=== PATIENT | male | born 1960 | race Hispanic/Latino ===

== ENCOUNTER → 2017-12-16 | Outpatient (CLI) | payer OTHER ==
[~2017-12-16] MED LIST: CAPS60CR3 TP; CARB1DRO6 OU; CEPH500B PO; CHLO118L5 TP; CHOL100046 PO; CLOT15CR62 TP; DICL100G31 TP; DRON2.5C12 PO; FLUT15.88 NS; GABA-531 PO; LACT1CAP88 PO; MULT-950 PO; NAPR375T6 PO; OXYC-586 PO; OXYC5SOL17 PO; PSYL0.4C PO; PYRI50TA15 PO; SAW PALMETTO PO; SILD100T PO; UBID100C10 PO
== END | disposition home or self-care (01) ==
LOC: RAH 08:53
PROVIDERS: ATTEND Family Medicine
DX: S83.241A Other tear of medial meniscus, current injury, right knee, initial encounter (principal); X58.XXXA Exposure to other specified factors, initial encounter; Y93.89 Activity, other specified; Y92.89 Other specified places as the place of occurrence of the external cause; Y99.8 Other external cause status
CPT/HCPCS: 73721

== ENCOUNTER 2017-12-20 06:24 | Day surgery (SDC) | payer OTHER ==
[2017-12-19 15:32] VITALS: BP 116/75
[2017-12-19 15:38] LABS: BASOPHILS % (AUTO) 0.6 % (0.0-5.0); EOSINOPHILS % (AUTO) 1.9 % (0.0-8.0); HEMATOCRIT 46.5 % (42-54); LYMPHOCYTES % (AUTO) 41.1 % (21.0-51.0); MEAN CORPUSCULAR HEMOGLOBIN 34.6 pg (27.0-33.0); MEAN CORPUSCULAR HGB CONC 35.5 g/dL (32.0-36.0); MEAN CORPUSCULAR VOLUME 97.5 fL (79-99); NEUTROPHILS % (AUTO) 49.4 % (40.0-77.0); NUCLEATED RED BLOOD CELLS 0.1 % (0.0-0.19); PLATELET COUNT (AUTO) 150 K/uL (130-400); RED BLOOD CELL COUNT(AUTO) 4.77 MIL/uL (4.50-6.20); RED CELL DISTRIBUTION WIDTH 13.2 % (11.0-15.5)
[2017-12-19 15:49] LABS: CREATININE 1.1 mg/dL (0.5-1.5); POTASSIUM 4.5 mmol/L (3.5-5.1)
[~2017-12-20] VITALS: Ht 175.3 cm; Wt 100.6 kg
[2017-12-20] VITALS (13 sets, daily range): BP systolic 97–136; BP diastolic 60–73
[~2017-12-20 06:24] MED LIST changes: -CAPS60CR3 TP; +CEFAZOLIN 3GM /D5W 100ML 100 ML IV SCH; -CEPH500B PO; -CHLO118L5 TP; -CLOT15CR62 TP; -DICL100G31 TP; -FLUT15.88 NS; -GABA-531 PO; -LACT1CAP88 PO; -NAPR375T6 PO; -OXYC5SOL17 PO; -PSYL0.4C PO; -SAW PALMETTO PO; -UBID100C10 PO
[2017-12-20] MEDS ORDERED: ONDANSETRON HCL 4 MG/2 ML VIAL ONE ×2 (06:36→09:47)
[2017-12-20] MEDS ORDERED: PROPOFOL 10 MG/ML 20ML VIAL IV ONE ×2 (06:36→08:22)
[2017-12-20] MEDS ORDERED: GLYCOPYRROLATE 0.2 MG/ML 5 ML VIAL ONE (06:36)
[2017-12-20] MEDS ORDERED: DEXAMETHASONE SOD PHOSPHATE 10MG/ML 1ML VIAL ONE ×2 (06:36→08:49)
[2017-12-20] MEDS ORDERED: MIDAZOLAM HCL 1 MG/ML 2ML VIAL ONE (06:36)
[2017-12-20] MEDS ORDERED: LIDOCAINE PF 2% 5ML ABBOJECT ONE (06:36)
[2017-12-20] MEDS ORDERED: NEOSTIGMINE 5MG/5ML SYR IV ONE ×2 (06:36→08:49)
[2017-12-20] MEDS ORDERED: FENTANYL CITRATE PF 50 MCG/1 ML 2ML VIAL ONE ×2 (06:37→08:35)
[2017-12-20] MEDS ORDERED: LACTATED RINGERS 1000ML 1,000 ML IV ONE (07:26)
[2017-12-20] MEDS ORDERED: CEFAZOLIN SODIUM 1 GM VIAL ONE (07:26)
[2017-12-20] MEDS: CEFAZOLIN SODIUM 1 GM VIAL ONE ×2 (08:00→08:50)
[2017-12-20] MEDS ORDERED: ROCURONIUM BROMIDE 10MG/1ML 5ML VL ONE (08:49)
[2017-12-20] MEDS ORDERED: ONDANSETRON HCL MDV 20ML 2 MG/ML VIAL ONE (08:49)
[2017-12-20] MEDS ORDERED: SUCCINYLCHOLINE CHLORIDE 20 MG/ML 10 ML VIAL ONE (08:49)
[2017-12-20] MEDS ORDERED: METOCLOPRAMIDE 10 MG/2 ML VIAL ONE ×2 (08:50→09:47)
[2017-12-20] MEDS ORDERED: LIDOCAINE HCL 4% LTA SOL 4 ML VIAL ONE (08:50)
[2017-12-20] MEDS ORDERED: CITRIC ACID/SODIUM CITRATE 30 ML UDCUP ONE (08:58)
[2017-12-20] MEDS ORDERED: CEPH500B PO (09:12)
[2017-12-20] MEDS ORDERED: NAPR375T6 PO (09:12)
[2017-12-20] MEDS ORDERED: MEPERIDINE-PF 25 MG/ML SYG ONE ×2 (09:27→09:33)
== END 2017-12-20 11:03 | disposition home or self-care (01) ==
LOC: DAH 06:24
PROVIDERS: ATTEND Orthopaedic Surgery
DX: M23.221 Derangement of posterior horn of medial meniscus due to old tear or injury, right knee (principal); M48.02 Spinal stenosis, cervical region; M25.50 Pain in unspecified joint; Z98.890 Other specified postprocedural states; N40.0 Benign prostatic hyperplasia without lower urinary tract symptoms; Z90.49 Acquired absence of other specified parts of digestive tract; Z68.32 Body mass index [BMI] 32.0-32.9, adult; F17.210 Nicotine dependence, cigarettes, uncomplicated; Z88.8 Allergy status to other drugs, medicaments and biological substances; G89.29 Other chronic pain
CPT/HCPCS: 29881; 36415; 80048; 85025; A4218 ×2; A4606; A4649 ×2; A4930; A6223; J0330; J0690 ×2; J1100 ×2; J2001; J2175 ×2; J2250; J2405 ×2; J2704 ×2; J2710 ×2; J2765 ×2; J3010 ×2; J3490 ×2; J7120

== ENCOUNTER → 2018-05-02 | Outpatient (CLI) | payer OTHER ==
[~2018-05-02] MED LIST changes: -CEFAZOLIN 3GM /D5W 100ML 100 ML IV SCH; +CEPH500B PO; +NAPR375T6 PO
== END | disposition home or self-care (01) ==
LOC: SHCH 11:09
PROVIDERS: ATTEND Internal Medicine Cardiovascular Disease
DX: R94.31 Abnormal electrocardiogram [ECG] [EKG] (principal)
CPT/HCPCS: 93306